=== PATIENT | male | born 1975 | race Two or more races ===

== ENCOUNTER 2022-03-18 12:52 | Emergency (ER) | payer MEDICAID ==
[2022-03-18] MEDS ORDERED: Adacel Vial IM ONE ×2 (13:20→14:28)
--- NOTE | 2022-03-18 13:26 | ERPHSYRPT ---
- History of Present Illness Source: patient Exam Limitations: no limitations Patient Subjective Stated Complaint: C/O pain to right arm just proximal to elbow and pain to right side of forehead following a fall at home just prior to coming into the ED. Triage Nursing Assessment: Patient came back to the ED in a wheelchair. He was able to transfer self from chair to bed without difficulties. ROM WNL. Able to bear weight without pain. Right side of forehead is red with small abrasion in hairline. Contusion to right arm where pain is located. No bruising at this time. Physician History: 47 yo M w fall at home hitting his R frontal scalp and R supra-olecranon area before arrival. Pt states that his leg gave out. He was dazed but denies LOC. Pt denies C/T/L-spine pain/chest pain/LE pain/pelvic-hip pain. Pt has small abrasions R frontal scalp wo bleeding. Occurred: just prior to arrival Reason for Fall: lost balance (Leg gave out) Injuries/Pain Location: head, upper extremity Loss of Consciousness: no loss of consciousness, dazed Quality: aching Severity of Pain-Max: moderate Severity of Pain-Current: moderate Modifying Factors: Improves With: nothing, movement Associated Symptoms (Fall): extremity injury (R supra-olecranon area), headache, No abdominal pain, No back pain, No confusion, No chest pain, No dizziness, No lightheadedness, No muscle spasms, No nausea, No neck pain, No ringing in ears, No seizures, No shortness of breath, No slurred speech, No trouble walking, No vomiting, No vision changes Allergies/Adverse Reactions: amoxicillin Allergy (Verified 03/18/22 13:09) vancomycin Allergy (Verified 03/18/22 13:09) Home Medications: No Reportable Medications [No Reported Medications] 03/18/22 [History] Hx Tetanus, Diphtheria Vaccination/Date Given: Yes Hx Influenza Vaccination/Date Given: No Hx Pneumococcal Vaccination/Date Given: No Immunizations Up to Date: Yes Travel Risk - International Travel Have you traveled outside of the country in past 3 weeks: No - Coronavirus Screening Are you exhibiting any of the following symptoms?: No Close contact with a COVID-19 positive Pt in past 14-21 Days: No - Vaccine Status Have you recieved a Covid-19 vaccination: No - Review of Systems Constitutional: No Symptoms Eyes: No Symptoms Ears, Nose, & Throat: No Symptoms Respiratory: No Symptoms Cardiac: No Symptoms Abdominal/Gastrointestinal: No Symptoms Genitourinary Symptoms: No Symptoms Musculoskeletal: No Symptoms, Arthralgias (R supra-olecranon area) Skin: No Symptoms Neurological: No Symptoms Psychological: No Symptoms Endocrine: No Symptoms Hematologic/Lymphatic: No Symptoms Immunological/Allergic: No Symptoms - Past Medical History Pertinent Past Medical History: Yes GI Medical History: Gallbladder Disease Other Medical History: Staph infection in groin - Past Surgical History Past Surgical History: Yes Neuro Surgical History: No Pertinent History Cardiac: No Pertinent History Respiratory: No Pertinent History Gastrointestinal: Cholecystectomy Genitourinary: No Pertinent History Musculoskeletal: No Pertinent History Male Surgical History: No Pertinent History - Social History Smoking Status: Current every day smoker Exposure to second hand smoke: No Drug Use: marijuana Patient Lives Alone: No Significant Family History: no pertinent family hx - Nursing Vital Signs Nursing Vital Signs: Initial Vital Signs Temperature 96.9 F 03/18/22 13:10 Pulse Rate 78 03/18/22 13:10 Respiratory Rate 16 03/18/22 13:10 Blood Pressure 143/95 03/18/22 13:10 O2 Sat by Pulse Oximetry 97 03/18/22 13:10 Pain Scale Pain Intensity [] 7 Pain Intensity [] 10 Pain Intensity 4 Mildly hypertensive - [place] Coma Score Best Eye Response ([place]): (4) open spontaneously Best Verbal Response ([place]): (5) oriented Best Motor Response ([place]): (6) obeys commands [place] Total: 15 - Physical Exam General Appearance: no apparent distress Head Injury: tenderness (R frontal scalp abrasions and TTP) Eye Exam: PERRL/EOMI, eyes nml inspection ENT Exam: airway nml, nml ext.inspection, No evidence of ENT injury, No clear fluid (ears), No clear fluid (nose) Neck Exam: supple, trachea midline, full range of motion, normal inspection (C- spine NTTP) Respiratory/Chest Exam: normal breath sounds, No chest tenderness, No respiratory distress Cardiovascular Exam: normal heart sounds, regular rate/rhythm, normal peripheral pulses, No murmur Gastrointestinal Exam: soft, normal bowel sounds, No tenderness Back Exam: normal inspection, vertebral tenderness (No new T or L-spine TTP) Extremity Exam: capillary refill <3 sec, pelvis stable, bony point tenderness (R supra-olecranon TTP/edema/abrasion/Good radial pulse, distal sensation, and capillary return), No deformities Peripheral Pulses: carotid (R): 2+, carotid (L): 2+ Neurologic Exam: alert, oriented x 3, cooperative, 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, normal mood/affect, nml cerebellar function, nml station & gait, sensation nml, No motor deficits, No sensory deficit Skin Exam: normal color, warm, dry SpO2 Interpretation: normal SpO2: 97 O2 Delivery: Room Air - Course Nursing assessment & vital signs reviewed: Yes - Radiology Exams Elbow X-ray Interpretation: Discussed w/ radiologist (R olecranon neg per Rad) - CT Exams Head CT Interpretation: Discussed w/radiologist (No skull fx or intracranial bleed) Ordered Tests: Active Orders 24 hr Category Date Time Status Jimenez Bandage Application -[facility] STAT Care 03/18/22 15:30 Completed ELBOW (MINIMUM 3 VIEWS) Stat Exams 03/18/22 14:07 Completed HEAD WITHOUT CONTRAST [CT] Stat Exams 03/18/22 13:19 Completed Medication Summary Discontinued Medications Generic Name Dose Route Start Last Admin Trade Name Freq PRN Reason Stop Dose Admin Diphtheria/Tetanus/Acell Pertussis 0.5 ml 03/18/22 13:20 03/18/22 14:35 Tdap --Diph,Pertuss(Acell),Tet Vac/Pf 0.5 Ml Vial IM 03/18/22 13:21 0.5 ml .ONCE ONE Administration Diphtheria/Tetanus/Acell Pertussis Confirm 03/18/22 14:28 Tdap --Diph,Pertuss(Acell),Tet Vac/Pf 0.5 Ml Vial Administered 03/18/22 14:29 Dose 0.5 ml IM .STK-MED ONE - Progress Progress: improved Progress Note: 03/18/22 15:27 Tdap given Pt refuses all pain meds 03/18/22 15:31 Jimenez wrap R olecranon per nursing/NVI Counseled pt/family regarding: diagnosis, need for follow-up, rad results - Departure Departure Disposition: Home Clinical Impression: Minor head injury, Contusion of elbow, left Condition: Stable Critical Care Time: No Referrals: BOURGASSER,GENE A [NON-STAFF PHY W/O PRIVILEGES] - Follow up/PCP as directed Instructions: Minor Head Injury (DC), Elbow Sprain (DC) Additional Instructions: Ice head and elbow for 12-24 hours Motrin/Tylenol for pain Return to ER for increasing pain, focal weakness, confusion, or nausea-vomiting Jimenez wrap to right elbow for 2-3 days
--- NOTE | 2022-03-18 15:17 | XRAY ---
Exam: 3 view right elbow series. Comparison: [None.] Indication: 47-year-old male fell onto right arm today. Findings: AP, oblique, and lateral radiographs of the right elbow were obtained. I see no acute fracture or dislocation. No posterior fat pad or elevation of the anterior fat-pad is seen to suggest a joint effusion. There appears to be some minimal ossifications adjacent to both the medial and lateral epicondyles of the distal right humerus which may reflect hydroxyapatite deposition disease, or calcific tendinitis. Correlate clinically. Impression: 1. No acute right elbow fracture, dislocation, or joint effusion is seen. 2. Small heterotopic ossifications adjacent to the medial and lateral epicondyles of the distal right humerus may reflect chronic calcific tendinitis. Correlate clinically.
[2022-03-18 15:21] VITALS: BP 142/84; PULSE 68
--- NOTE | 2022-03-18 15:23 | XRAY ---
Exam: CT of the head without IV contrast. CTDI: 53.92 mGy Comparison: CT of the head without IV contrast from 09/10/2007. Indication: 47-year-old male fell today after legs gave out, striking right side of the head on concrete; complains of dizziness and headaches since fall. Technique: Non-IV contrast axial images were obtained through the brain. Reconstructed coronal and sagittal images were created and reviewed. Findings: The ventricles appear of normal size and configuration. No focal mass effect or midline shift is seen. No acute intracranial bleed or abnormal extra-axial fluid collection is seen. The spencer matter-white matter interfaces appear normal. No low attenuation ischemic infarct is seen. The cortical sulci appear unremarkable. There is equivocal evidence of some minimal asymmetric soft tissue swelling within the anterior right parietal-temporal region. However, I see no fracture of the calvarium of the skull. Furthermore, the paranasal sinuses are clear without air-fluid levels. The mastoid air cells are clear without effusion. The middle ear cavities appear unremarkable. Impression: 1. I see no evidence of acute intracranial bleed or other acute intracranial process. 2. There is no fracture of the calvarium of the skull. There is equivocal evidence of slight asymmetric extracranial soft tissue swelling within the anterior right parietal-temporal region.
[2022-03-18 15:30] VITALS: O2SAT 97
== END 2022-03-18 15:35 | disposition home or self-care (01) ==
LOC: ED 12:52
DX: S50.01XA Contusion of right elbow, initial encounter (principal); S09.90XA Unspecified injury of head, initial encounter; S00.01XA Abrasion of scalp, initial encounter; W19.XXXA Unspecified fall, initial encounter; M25.521 Pain in right elbow; Z72.0 Tobacco use; Z28.310 Unvaccinated for COVID-19
CPT/HCPCS: 70450; 73080; 90471; 90715; 99283

== ENCOUNTER 2022-07-07 21:37 | Emergency (ER) | payer OTHER ==
[2022-07-07 21:53] VITALS: BP 162/107; PULSE 91; O2SAT 98
[2022-07-07] MEDS ORDERED: CLEOCIN 150 MG CAPSULE ONE (22:13)
[2022-07-07] MEDS ORDERED: TORAdol 30 mg Injection ONE (22:13)
[2022-07-07] MEDS: CLEOCIN 150 MG CAPSULE PO ONE (22:15)
[2022-07-07] MEDS: TORAdol 30 mg Injection IM ONE (22:17)
--- NOTE | 2022-07-07 22:27 | ERPHSYRPT ---
- History of Present Illness Source: patient Exam Limitations: no limitations Patient Subjective Stated Complaint: pt states "I have bad teeth and I think I have an abscess or something in one of my front teeth. " Triage Nursing Assessment: Pt ambulatory to bed by self, pt alert and oriented x3, pt c/o dental pain that started today, pt has his front 4 teeth surgically removed at a dentist in [place]. last dose of tylenol was 4 hrs prior to arrival, per pt he has been taking tylenol q 4 hrs with no relief Physician History: 47 yo M w dental pain beginning earlier today. Pt has poor dentition and states that the pain is mod to severe. He has mild gingival swelling. Trismus/fever/dysphagia are all denied. Timing/Duration: abrupt onset (Earlier today) Severity: moderate ENT Location: dental Prearrival Treatment: over the counter meds Modifying Factors: Improves With: other (Worse w chewing) Associated Symptoms: denies symptoms, tooth pain Allergies/Adverse Reactions: amoxicillin Allergy (Verified 07/07/22 21:45) vancomycin Allergy (Verified 07/07/22 21:45) Hx Tetanus, Diphtheria Vaccination/Date Given: Yes Hx Influenza Vaccination/Date Given: No Hx Pneumococcal Vaccination/Date Given: No Immunizations Up to Date: Yes Travel Risk - International Travel Have you traveled outside of the country in past 3 weeks: No - Coronavirus Screening Are you exhibiting any of the following symptoms?: No Close contact with a COVID-19 positive Pt in past 14-21 Days: No - Vaccine Status Have you recieved a Covid-19 vaccination: No - Review of Systems Constitutional: No Symptoms Eyes: No Symptoms Ears, Nose, & Throat: No Symptoms, Mouth Pain, Mouth Swelling Respiratory: No Symptoms Cardiac: No Symptoms Abdominal/Gastrointestinal: No Symptoms Genitourinary Symptoms: No Symptoms Musculoskeletal: No Symptoms Skin: No Symptoms Neurological: No Symptoms Psychological: No Symptoms Endocrine: No Symptoms Hematologic/Lymphatic: No Symptoms Immunological/Allergic: No Symptoms - Past Medical History Pertinent Past Medical History: Yes Neurological History: No Pertinent History ENT History: No Pertinent History Cardiac History: No Pertinent History Respiratory History: No Pertinent History Endocrine Medical History: No Pertinent History Musculoskeletal History: No Pertinent History GI Medical History: Gallbladder Disease History: No Pertinent History Psycho-Social History: No Pertinent History Male Reproductive Disorders: No Pertinent History Other Medical History: Staph infection in groin - Past Surgical History Past Surgical History: Yes Neuro Surgical History: No Pertinent History Cardiac: No Pertinent History Respiratory: No Pertinent History Gastrointestinal: Cholecystectomy Genitourinary: No Pertinent History Musculoskeletal: No Pertinent History Male Surgical History: No Pertinent History - Social History Smoking Status: Current every day smoker Exposure to second hand smoke: No Drug Use: marijuana Patient Lives Alone: No Significant Family History: no pertinent family hx - Nursing Vital Signs Nursing Vital Signs: Initial Vital Signs Pulse Rate 91 H 07/07/22 21:45 Respiratory Rate 18 07/07/22 21:45 Blood Pressure 162/107 07/07/22 21:45 O2 Sat by Pulse Oximetry 98 07/07/22 21:45 Pain Scale Pain Intensity 7 Hypertensive - Physical Exam General Appearance: no apparent distress Eye Exam: bilateral eye: normal inspection, PERRL, EOMI Ear Exam: bilateral ear: auricle normal, canal normal, TM normal Nasal Exam: normal inspection Throat Exam: pharynx normal, dental tenderness (Very poor dentition/Advanced upper erosions of superior front teeth w L front tooth very TTP/Mild gingival edema/), moist mucus membranes, No mandibular swelling, No maxillary swelling, No tongue swollen, No tonsillar swelling, No trismus, No uvula swelling, No voice changes Neck Exam: normal inspection Cardiovascular/Respiratory Exam: normal breath sounds, regular rate/rhythm, heart sounds normal Abdominal Exam: non-tender, soft Neurologic Exam: alert, oriented x 3, cooperative, 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, normal mood/affect, nml cerebellar function, nml station & gait, sensation nml, No motor deficits, No sensory deficit Skin Exam: normal color, warm, dry, No rash SpO2 Interpretation: normal SpO2: 98 O2 Delivery: Room Air - Course Nursing assessment & vital signs reviewed: Yes Ordered Tests: Medication Summary Discontinued Medications Generic Name Dose Route Start Last Admin Trade Name Freq PRN Reason Stop Dose Admin Hydrocodone Bitart/Acetaminophen 2 tab 07/07/22 22:32 07/07/22 22:42 Hydrocodone/Apap 5/325 1 Tab Tablet PO 07/07/22 22:33 2 tab SENT HOME W/ PATIENT ONE Administration Hydrocodone Bitart/Acetaminophen Confirm 07/07/22 22:35 Hydrocodone/Apap 5/325 1 Tab Tablet Administered 07/07/22 22:36 Dose 2 tab .ROUTE .STK-MED ONE Clindamycin HCl 300 mg 07/07/22 22:11 07/07/22 22:15 Clindamycin Hcl 150 Mg Capsule PO 07/07/22 22:12 300 mg STAT ONE Administration Clindamycin HCl Confirm 07/07/22 22:13 Clindamycin Hcl 150 Mg Capsule Administered 07/07/22 22:14 Dose 300 mg .ROUTE .STK-MED ONE Ketorolac Tromethamine 30 mg 07/07/22 22:10 07/07/22 22:17 Ketorolac Tromethamine 30 Mg/Ml Inj IM 07/07/22 22:11 30 mg STAT ONE Administration Ketorolac Tromethamine Confirm 07/07/22 22:13 Ketorolac Tromethamine 30 Mg/Ml Inj Administered 07/07/22 22:14 Dose 30 mg .ROUTE .STK-MED ONE - Progress Progress Note: 07/07/22 22:28 30mg IM Toradol 300mg po Clindamycin 07/07/22 23:33 Norco5 x2 take home Counseled pt/family regarding: diagnosis, need for follow-up - Departure Departure Disposition: Home Clinical Impression: Pain due to dental caries, Dental abscess Condition: Stable Critical Care Time: No Referrals: Provider,Unknown [Primary Care Provider] - Follow up/PCP as directed Instructions: Tooth Abscess (DC), Tooth Decay, Adult (DC) Additional Instructions: Dentist MICHAEL Continue w Clindamycin Pain meds as needed Prescriptions: Hydrocodone/Acetaminophen [Hydrocodone-Acetamin 5-325 mg] 1 each PO Q4HPRN PRN #5 tablet MDD 4 tabs PRN Reason: Pain clindamycin HCL [Clindamycin HCl] 300 mg PO TID 7 Days #21 cap
[2022-07-07] MEDS ORDERED: NORCO 5/325 MG ONE (22:35)
[2022-07-07] MEDS: NORCO 5/325 MG PO ONE (22:42)
== END 2022-07-07 22:56 | disposition home or self-care (01) ==
LOC: ED 21:37
DX: K04.7 Periapical abscess without sinus (principal); K02.9 Dental caries, unspecified
CPT/HCPCS: 96372; 99283; J1885; A9270-GY

== ENCOUNTER 2022-07-21 20:47 | Emergency (ER) | payer OTHER ==
--- NOTE | 2022-07-21 21:00 | ERPHSYRPT ---
- History of Present Illness Time Seen by Provider: 07/21/22 21:00 Source: patient Exam Limitations: no limitations Physician History: This is a 47-year-old obese male who presents with pain in the right perianal area. He noticed it this morning. Patient states that he has had an abscess in the perianal area in the past requiring incision and drainage. Patient has not had a fever. He has not noticed a mass or lump but just tenderness in the right perianal area. Timing/Duration: today Quality: painful Severity: mild (To moderate) Possible Causes: no cause identified Associated Symptoms: denies symptoms, No swelling/mass/lumps Allergies/Adverse Reactions: amoxicillin Allergy (Verified 07/21/22 21:49) Penicillins Allergy (Verified 07/21/22 21:49) vancomycin Allergy (Verified 07/21/22 21:49) Hx Tetanus, Diphtheria Vaccination/Date Given: Yes Hx Influenza Vaccination/Date Given: No Hx Pneumococcal Vaccination/Date Given: No Travel Risk - International Travel Have you traveled outside of the country in past 3 weeks: No - Coronavirus Screening Are you exhibiting any of the following symptoms?: No Close contact with a COVID-19 positive Pt in past 14-21 Days: No - Vaccine Status Have you recieved a Covid-19 vaccination: No - Review of Systems Constitutional: No Symptoms Eyes: No Symptoms Ears, Nose, & Throat: No Symptoms Respiratory: No Symptoms Cardiac: No Symptoms Abdominal/Gastrointestinal: No Symptoms, Other (Perianal tenderness to palpation but no abscess or drainage present) Musculoskeletal: No Symptoms Skin: No Symptoms Neurological: No Symptoms Psychological: No Symptoms Endocrine: No Symptoms Hematologic/Lymphatic: No Symptoms Immunological/Allergic: No Symptoms All Other Systems: Reviewed and Negative - Past Medical History Pertinent Past Medical History: Yes Neurological History: No Pertinent History ENT History: No Pertinent History Cardiac History: No Pertinent History Respiratory History: No Pertinent History Endocrine Medical History: No Pertinent History Musculoskeletal History: No Pertinent History GI Medical History: Gallbladder Disease History: No Pertinent History Psycho-Social History: No Pertinent History Male Reproductive Disorders: No Pertinent History Other Medical History: Staph infection in groin - Past Surgical History Past Surgical History: Yes Neuro Surgical History: No Pertinent History Cardiac: No Pertinent History Respiratory: No Pertinent History Gastrointestinal: Cholecystectomy Genitourinary: No Pertinent History Musculoskeletal: No Pertinent History Male Surgical History: No Pertinent History - Social History Smoking Status: Current every day smoker Exposure to second hand smoke: No Drug Use: marijuana Patient Lives Alone: No Significant Family History: no pertinent family hx - Nursing Vital Signs Nursing Vital Signs: Initial Vital Signs Temperature 98.1 F 07/21/22 21:37 Pulse Rate 103 H 07/21/22 21:37 Respiratory Rate 20 07/21/22 21:37 Blood Pressure 157/112 07/21/22 21:37 O2 Sat by Pulse Oximetry 97 07/21/22 21:37 Pain Scale Pain Intensity 7 - Physical Exam General Appearance: no apparent distress, alert, obese Eye Exam: PERRL/EOMI, eyes nml inspection Ears, Nose, Throat Exam: normal ENT inspection, moist mucous membranes Neck Exam: normal inspection, non-tender, supple, full range of motion Respiratory Exam: chest tenderness, respiratory distress, airway intact Gastrointestinal/Abdomen Exam: No tenderness Rectal Exam: tenderness (Right perianal tenderness without abscess or drainage present.) Back Exam: normal inspection, normal range of motion, No CVA tenderness Extremity Exam: normal inspection, normal range of motion, pelvis stable Neurologic Exam: alert, oriented x 3, cooperative, 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, normal mood/affect, nml cerebellar function, nml station & gait, sensation nml Skin Exam: normal color, warm, dry Lymphatic Exam: No adenopathy SpO2 Interpretation: normal O2 Delivery: Room Air - Course Nursing assessment & vital signs reviewed: Yes - Progress Progress: improved Counseled pt/family regarding: diagnosis, need for follow-up, rad results - Departure Departure Disposition: Home Clinical Impression: Perianal cellulitis, Induration of skin Condition: Stable Critical Care Time: No Referrals: SIS SEQUEIRA FNP [Primary Care Provider] - Follow up/PCP as directed Additional Instructions: Sitz bath twice a day with warm soapy water or Epson salts. Take your antibiotics as prescribed. Follow-up with your primary care physician for persistent symptoms. May return to emergency department if your symptoms worsen. Prescriptions: Hydrocodone/APAP 5/325 [[place] 5/325 mg] 1 each PO Q8H PRN PRN #6 tablet MDD 3 PRN Reason: Pain Smz/Tmp Ds Tablet [Bactrim Ds Tablet] 1 udtab PO BID #14 tablet Metronidazole 500 mg [Flagyl 500 MG] 500 mg PO TID #21 tablet
[2022-07-21 21:40] VITALS: O2SAT 97
[2022-07-21] MEDS ORDERED: BACTRIM DS TABLET PO ONE (22:08)
[2022-07-21] MEDS ORDERED: NORCO 5/325 MG ONE (22:09)
[2022-07-21] MEDS ORDERED: Flagyl 500 MG ONE (22:09)
[2022-07-21] MEDS: Flagyl 500 MG PO ONE (22:10)
[2022-07-21] MEDS: NORCO 5/325 MG PO ONE ×2 (22:10)
[2022-07-21] MEDS: BACTRIM DS TABLET PO ONE (22:10)
[2022-07-21 22:16] VITALS: BP 134/94; PULSE 108
== END 2022-07-21 22:30 | disposition home or self-care (01) ==
LOC: ED 20:47
DX: K61.1 Rectal abscess (principal); R23.4 Changes in skin texture; R10.2 Pelvic and perineal pain; Z72.0 Tobacco use; Z28.310 Unvaccinated for COVID-19; Z79.891 Long term (current) use of opiate analgesic
CPT/HCPCS: 99282; A9270-GY

== ENCOUNTER 2023-03-25 21:27 | Emergency (ER) | payer OTHER ==
[2023-03-25] MEDS ORDERED: Hydromorphone 1 mg/ml Injection IV ONE (21:35)
--- NOTE | 2023-03-25 21:35 | ERPHSYRPT ---
- History of Present Illness Time Seen by Provider: 03/25/23 21:34 Source: patient, family Exam Limitations: no limitations Physician History: This is a 48-year-old obese male who presents low back pain and radiation into his hip and buttocks. Patient was seen at an outside facility and had a CAT scan which did not show any acute lumbar spine fractures or spinal stenosis. Patient does not have numbness in his feet. He has no loss of urinary or bowel control. He has no constipation. He was given a combination of naproxen, prednisone and Robaxin. This combination has not been helping him. Patient has not had a fall or any acute trauma to the area. Timing/Duration: day(s) (For 5 days), intermittent, worse Severity: moderate Modifying Factors: Improves With: movement Associated Symptoms: denies symptoms Allergies/Adverse Reactions: amoxicillin Allergy (Verified 03/25/23 22:00) Penicillins Allergy (Verified 03/25/23 22:00) vancomycin Allergy (Verified 03/25/23 22:00) Home Medications: Methocarbamol [Robaxin] 1,000 mg PO BID 03/25/23 [History] Naproxen 500 mg [Naprosyn 500 MG] 1,000 mg PO BID 03/25/23 [History] predniSONE [Prednisone] 50 mg PO DAILY 03/25/23 [History] Hx Tetanus, Diphtheria Vaccination/Date Given: Yes Hx Influenza Vaccination/Date Given: No Hx Pneumococcal Vaccination/Date Given: No Travel Risk - International Travel Have you traveled outside of the country in past 3 weeks: No - Coronavirus Screening Are you exhibiting any of the following symptoms?: No Close contact with a COVID-19 positive Pt in past 14-21 Days: No - Vaccine Status Have you recieved a Covid-19 vaccination: No - Review of Systems Constitutional: No Symptoms Eyes: No Symptoms Ears, Nose, & Throat: No Symptoms Respiratory: No Symptoms Cardiac: No Symptoms Abdominal/Gastrointestinal: No Symptoms Genitourinary Symptoms: No Symptoms Musculoskeletal: Back Pain Skin: No Symptoms Neurological: No Symptoms Psychological: No Symptoms Endocrine: No Symptoms Hematologic/Lymphatic: No Symptoms Immunological/Allergic: No Symptoms All Other Systems: Reviewed and Negative - Past Medical History Pertinent Past Medical History: Yes Neurological History: No Pertinent History ENT History: No Pertinent History Cardiac History: No Pertinent History Respiratory History: No Pertinent History Endocrine Medical History: No Pertinent History Musculoskeletal History: No Pertinent History GI Medical History: Gallbladder Disease History: No Pertinent History Psycho-Social History: No Pertinent History Male Reproductive Disorders: No Pertinent History Other Medical History: Staph infection in groin - Past Surgical History Past Surgical History: Yes Neuro Surgical History: No Pertinent History Cardiac: No Pertinent History Respiratory: No Pertinent History Gastrointestinal: Cholecystectomy Genitourinary: No Pertinent History Musculoskeletal: No Pertinent History Male Surgical History: No Pertinent History Other Surgical History: anus abscess removal - Social History Smoking Status: Current every day smoker How long have you smoked: 31 yrs Exposure to second hand smoke: No Drug Use: marijuana Patient Lives Alone: No Significant Family History: no pertinent family hx - Nursing Vital Signs Nursing Vital Signs: Initial Vital Signs Temperature 98.2 F 03/25/23 21:47 Pulse Rate 79 03/25/23 21:47 Respiratory Rate 20 03/25/23 21:47 Blood Pressure 118/93 03/25/23 21:47 O2 Sat by Pulse Oximetry 96 03/25/23 21:47 Pain Scale Pain Intensity [Left Back] 10 Pain Intensity 10 - Physical Exam General Appearance: no apparent distress, alert, anxiety, obese Eye Exam: PERRL/EOMI, eyes nml inspection Ears, Nose, Throat Exam: normal ENT inspection, moist mucous membranes, tonsillar exudate Neck Exam: normal inspection, non-tender, supple Respiratory Exam: airway intact, No chest tenderness, No respiratory distress Gastrointestinal/Abdomen Exam: No tenderness Rectal Exam: not done Back Exam: normal inspection, vertebral tenderness, decreased range of motion, muscle spasm Extremity Exam: normal inspection, normal range of motion, pelvis stable Neurologic Exam: alert, oriented x 3, cooperative, 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 The level complexity and the work-up performed is based on the review of the patient's past medical history, review of the patient's medication list, review of the patient's drug allergies, history present illness and physical findings on examination. The work-up in this patient does not require laboratory radiographic studies. I am awaiting the CT scan results from 3 days ago which includes lumbar spine CT scan results. The patient states there were no fractures or abnormalities in the spine per his report. He was diagnosed with sciatica which I think he has. We will modify his drug regimen and help him with pain control. Counseled pt/family regarding: diagnosis, need for follow-up Medical Desision Making - Independent Historian Additional History obtained from: Spouse - Risk of complications The pt has a mod risk of morbidity or mortality based on: Need for prescription drug management - Departure Departure Disposition: Home Clinical Impression: Sciatica Condition: Stable Critical Care Time: No Referrals: SIS SEQUEIRA FNP [Primary Care Provider] - Follow up/PCP as directed Additional Instructions: Stop your Robaxin. Continue your prednisone and your naproxen. Contact your primary care provider on 03/28/2020 3 in the morning to make arrangements for follow-up appointment and to discuss referral to a back specialist and pain management. Prescriptions: Oxycodone HCl/Acetaminophen [Percocet 5-325 mg Tablet] 1 each PO Q8H PRN PRN #6 tablet MDD 3 PRN Reason: Moderate To Severe Pain
[2023-03-25] MEDS ORDERED: Hydromorphone 1 mg/ml Injection IM ONE (22:18)
[2023-03-25] MEDS ORDERED: Norflex 60 MG/2 ML IM ONE (22:18)
[2023-03-25] MEDS ORDERED: ZOFRAN ODT 4 MG PO ONE (22:18)
[2023-03-25] MEDS ORDERED: PERCOCET TABLET 5/325MG PO STA (22:19)
[2023-03-25] MEDS ORDERED: ZOFRAN ODT 4 MG ONE (22:27)
[2023-03-25] MEDS ORDERED: PERCOCET TABLET 5/325MG ONE (22:27)
[2023-03-25] MEDS ORDERED: Hydromorphone 1 mg/ml Injection ONE (22:28)
[2023-03-25] MEDS ORDERED: Norflex 100 MG Tablet PO ONE ×2 (22:46→22:47)
[2023-03-25 23:13] VITALS: BP 133/86; PULSE 95; O2SAT 97
== END 2023-03-25 23:08 | disposition home or self-care (01) ==
LOC: ED 21:27
DX: M54.30 Sciatica, unspecified side (principal); Z79.891 Long term (current) use of opiate analgesic; Z79.52 Long term (current) use of systemic steroids; Z79.899 Other long term (current) drug therapy; Z28.310 Unvaccinated for COVID-19; Z72.0 Tobacco use
CPT/HCPCS: 96372; 99283; J1170; Q0162; A9270-GY

== ENCOUNTER 2023-04-02 21:14 | Emergency (ER) | payer OTHER ==
--- NOTE | 2023-04-02 21:55 | ERPHSYRPT ---
- History of Present Illness Time Seen by Provider: 04/02/23 21:54 Source: patient Exam Limitations: no limitations Patient Subjective Stated Complaint: pt states that approx 2 weeks ago he started noticing bilat lower leg swelling that is accompanied by pain. he was seen at [facility] on the for same then [facility] on the for same. He is taking the medications that were prescribed to him previously but without relief. pt has sciatica which doesn't allow him to lay down meaning his legs are dangling off the bedside. buck reports that there has been "weeping" on left lower leg but none noted at this time. pt states he has had cellulitis in lower legs previously approx 10yrs ago. Triage Nursing Assessment: pt brought to room 8 via wheelchair and stood to pivot into bed independently. he refused to lay down in bed with feet up due to "sciatica" pain. slight nonpitting edema noted to bilat lower legs from knees down, bilat pedal pulses palpable yet weak, color and cap refill within normal limits to both LE's. pt is able to wiggle all toes, sensation within normal limits with exception of the toes on his left foot being numb which is new. no open areas or drainage noted. denies cp, sob, or difficulty with urination or bowel elimination, denies tingling. Physician History: 48-year-old male presents to the emergency room with new onset bilateral lower extremity edema. He denies fever, chills, chest pain, shortness of breath, nausea, vomiting, abdominal pain, constipation, diarrhea. Patient has severe st abbing pain in the left lower extremity and is radiating from his back for which she has chronic low back pain and has had work-up in the past and is supposed to see pain management. Patient denies ever taking gabapentin or Lyrica for his neuropathic pain. Timing/Duration: yesterday Severity: moderate Modifying Factors: Worsens With: immobilization Associated Symptoms: denies symptoms Allergies/Adverse Reactions: amoxicillin Allergy (Verified 04/02/23 21:30) Penicillins Allergy (Verified 04/02/23 21:30) vancomycin Allergy (Verified 04/02/23 21:30) Home Medications: Naproxen 500 mg [Naprosyn 500 MG] 500 mg PO BID 03/25/23 [History] Cyclobenzaprine HCl 10 mg [Cyclobenzaprine 10 MG] 10 mg PO BID 04/02/23 [History] Ibuprofen 200 mg [Motrin 200 mg] 600 mg PO TID 04/02/23 [History] Hx Tetanus, Diphtheria Vaccination/Date Given: Yes Hx Influenza Vaccination/Date Given: No Hx Pneumococcal Vaccination/Date Given: No Immunizations Up to Date: Yes Travel Risk - International Travel Have you traveled outside of the country in past 3 weeks: No - Coronavirus Screening Are you exhibiting any of the following symptoms?: No Close contact with a COVID-19 positive Pt in past 14-21 Days: No - Vaccine Status Have you recieved a Covid-19 vaccination: No - Review of Systems Constitutional: No Symptoms Eyes: No Symptoms Ears, Nose, & Throat: No Symptoms Respiratory: No Symptoms Cardiac: No Symptoms Abdominal/Gastrointestinal: No Symptoms Genitourinary Symptoms: No Symptoms Musculoskeletal: Back Pain, Other (b/l LE pain and swelling) Skin: No Symptoms Neurological: No Symptoms Psychological: No Symptoms Endocrine: No Symptoms Hematologic/Lymphatic: No Symptoms Immunological/Allergic: No Symptoms All Other Systems: Reviewed and Negative - Past Medical History Pertinent Past Medical History: Yes Neurological History: No Pertinent History ENT History: No Pertinent History Cardiac History: No Pertinent History Respiratory History: No Pertinent History Endocrine Medical History: Diabetes Type II Musculoskeletal History: Other GI Medical History: Gallbladder Disease History: No Pertinent History Psycho-Social History: No Pertinent History Male Reproductive Disorders: No Pertinent History Other Medical History: Staph infection in groin, sciatica - Past Surgical History Past Surgical History: Yes Neuro Surgical History: No Pertinent History Cardiac: No Pertinent History Respiratory: No Pertinent History Gastrointestinal: Cholecystectomy Genitourinary: No Pertinent History Musculoskeletal: No Pertinent History Male Surgical History: No Pertinent History Other Surgical History: anus abscess removal - Social History Smoking Status: Current every day smoker How long have you smoked: 31 yrs Exposure to second hand smoke: No Drug Use: marijuana Patient Lives Alone: No Significant Family History: no pertinent family hx - Nursing Vital Signs Nursing Vital Signs: Initial Vital Signs Temperature 97.1 F 04/02/23 21:31 Pulse Rate 105 H 04/02/23 21:31 Respiratory Rate 16 04/02/23 21:31 Blood Pressure 149/117 04/02/23 21:31 O2 Sat by Pulse Oximetry 99 04/02/23 21:31 Pain Scale Pain Intensity 9 - Physical Exam General Appearance: no apparent distress, obese Eye Exam: PERRL/EOMI Ears, Nose, Throat Exam: normal ENT inspection Neck Exam: normal inspection, full range of motion Respiratory Exam: normal breath sounds, lungs clear, airway intact, No respiratory distress Cardiovascular Exam: regular rate/rhythm, normal heart sounds, capillary refill <2 sec, edema (1+ b/l LE ) Back Exam: vertebral tenderness (lumbar), decreased range of motion, muscle spasm, No CVA tenderness Extremity Exam: swelling (1+ b/l LE pitting edema), tenderness (L>R), No calf tenderness, No parasthesia Neurologic Exam: alert, oriented x 3, cooperative Skin Exam: normal color, warm, dry, No rash SpO2 Interpretation: normal SpO2: 99 O2 Delivery: Room Air Ordered Tests: Active Orders 24 hr Category Date Time Status CBC W DIFF Stat Lab 04/02/23 22:15 Completed CMP Stat Lab 04/02/23 22:15 Completed CULTURE,URINE Stat Lab 04/02/23 22:39 Received ESR [Erythrocyte Sedimentation Rate] Stat Lab 04/02/23 22:15 Completed NT PRO BNPII Stat Lab 04/02/23 22:15 Completed UA W/RFX UR CULTURE Stat Lab 04/02/23 22:39 Completed Medication Summary Generic Name Dose Route Start Last Admin Trade Name Freq PRN Reason Stop Dose Admin Pregabalin 150 mg 04/03/23 22:02 04/02/23 22:17 Pregabalin 150 Mg Capsule PO 04/03/23 22:03 150 mg ONCE ONE Administration Discontinued Medications Generic Name Dose Route Start Last Admin Trade Name Freq PRN Reason Stop Dose Admin Cyclobenzaprine HCl 10 mg 04/02/23 23:11 04/02/23 23:20 Cyclobenzaprine Hcl 10 Mg Tablet PO 04/02/23 23:12 10 mg STAT ONE Administration Cyclobenzaprine HCl Confirm 04/02/23 23:19 Cyclobenzaprine Hcl 10 Mg Tablet Administered 04/02/23 23:20 Dose 10 mg .ROUTE .STK-MED ONE Ketorolac Tromethamine 60 mg 04/02/23 22:00 04/02/23 22:17 Ketorolac Tromethamine 30 Mg/Ml Inj IM 04/02/23 22:01 60 mg STAT ONE Administration Ketorolac Tromethamine Confirm 04/02/23 22:12 Ketorolac Tromethamine 30 Mg/Ml Inj Administered 04/02/23 22:13 Dose 60 mg .ROUTE .STK-MED ONE Oxycodone/Acetaminophen 1 tab 04/02/23 23:16 04/02/23 23:20 Oxycodone / Apap 10/325 Mg 1 Tablet PO 04/02/23 23:17 1 tab STAT STA Administration Oxycodone/Acetaminophen Confirm 04/02/23 23:19 Oxycodone / Apap 10/325 Mg 1 Tablet Administered 04/02/23 23:20 Dose 1 tab .ROUTE .STK-MED ONE Pregabalin Confirm 04/02/23 22:14 Pregabalin 150 Mg Capsule Administered 04/02/23 22:15 Dose 150 mg .ROUTE .STK-MED ONE Lab/Rad Data: Laboratory Result Diagrams 04/02/23 22:15 04/02/23 22:15 Laboratory Results 04/02/23 04/02/23 04/02/23 Range/Units 22:39 22:15 22:15 WBC (4.0-10.5) x10^3/uL RBC (4.1-5.6) x10^6/uL Hgb (12.5-18.0) g/dL Hct (42-50) % MCV (78-100) fL MCH (26-32) pg MCHC (32-36) g/dL RDW (11.5-14.0) % Plt Count (150-450) x10^3/uL MPV (7.5-11.0) fL Gran % (36.0-66.0) % Immature Gran % (Auto) (0.00-0.4) % Nucleat RBC Rel Count (0.00-0.1) % Eos # (Auto) (0-0.5) x10^3/uL Immature Gran # (Auto) (0.00-0.03) x10^3u/L Absolute Lymphs (auto) (1.0-4.6) x10^3/uL Absolute Monos (auto) (0.0-1.3) x10^3/uL Absolute Nucleated RBC (0.00-0.01) x10^3u/L Lymphocytes % (24.0-44.0) % Monocytes % (0.0-12.0) % Eosinophils % (0.00-5.0) % Basophils % (0.0-0.4) % Absolute Granulocytes (1.4-6.9) x10^3/uL Basophils # (0-0.4) x10^3/uL ESR (0-15) mm/hr Sodium (137-145) mmol/L Potassium (3.5-5.1) mmol/L Chloride (98-107) mmol/L Carbon Dioxide (22-30) mmol/L Anion Gap (5-15) MEQ/L BUN (9-20) mg/dL Creatinine (0.66-1.25) mg/dL Estimated GFR ML/MIN Glucose (74-106) mg/dL Hemoglobin A1c 10.16 H (4.5-6.0) % Calcium (8.4-10.2) mg/dL Total Bilirubin (0.2-1.3) mg/dL AST (17-59) U/L ALT (0-50) U/L Alkaline Phosphatase (38-126) U/L NT-Pro-B Natriuret Pep < 20.0 (<300) pg/mL Serum Total Protein (6.3-8.2) g/dL Albumin (3.5-5.0) g/dL Urine Color Yellow (Yellow) Urine Appearance Clear (Clear) Urine pH 6.0 (4.6-8.0) Ur Specific [place] >=1.030 A (1.005-1.030) Urine Protein Negative (Negative) Urine Glucose (UA) >=1000 A (Negative) mg/dL Urine Ketones Trace A (Negative) Urine Blood Negative (Negative) Urine Nitrite Negative (Negative) Urine Bilirubin Negative (Negative) Urine Urobilinogen 0.2 (0.2) mg/dL Ur Leukocyte Esterase Negative (Negative) U Hyaline Cast (Auto) NONE SEEN (0-2) /LPF Urine Microscopic RBC 0-2 (0-5) /HPF Urine Microscopic WBC 11-20 A (0-5) /HPF Ur Epithelial Cells None Seen (None Seen) /HPF Urine Bacteria None Seen (None Seen) /HPF Urine Culture Reflexed YES (NO) 04/02/23 04/02/23 Range/Units 22:15 22:15 WBC 12.0 H (4.0-10.5) x10^3/uL RBC 5.32 (4.1-5.6) x10^6/uL Hgb 15.6 (12.5-18.0) g/dL Hct 47.1 (42-50) % MCV 88.5 (78-100) fL MCH 29.3 (26-32) pg MCHC 33.1 (32-36) g/dL RDW 13.5 (11.5-14.0) % Plt Count 199 (150-450) x10^3/uL MPV 11.1 H (7.5-11.0) fL Gran % 69.8 H (36.0-66.0) % Immature Gran % (Auto) 0.4 (0.00-0.4) % Nucleat RBC Rel Count 0.0 (0.00-0.1) % Eos # (Auto) 0.24 (0-0.5) x10^3/uL Immature Gran # (Auto) 0.05 H (0.00-0.03) x10^3u/L Absolute Lymphs (auto) 2.56 (1.0-4.6) x10^3/uL Absolute Monos (auto) 0.75 (0.0-1.3) x10^3/uL Absolute Nucleated RBC 0.00 (0.00-0.01) x10^3u/L Lymphocytes % 21.3 L (24.0-44.0) % Monocytes % 6.2 (0.0-12.0) % Eosinophils % 2.0 (0.00-5.0) % Basophils % 0.3 (0.0-0.4) % Absolute Granulocytes 8.37 H (1.4-6.9) x10^3/uL Basophils # 0.04 (0-0.4) x10^3/uL ESR 7 (0-15) mm/hr Sodium 136 L (137-145) mmol/L Potassium 3.7 (3.5-5.1) mmol/L Chloride 105 (98-107) mmol/L Carbon Dioxide 22 (22-30) mmol/L Anion Gap 13.5 (5-15) MEQ/L BUN 12 (9-20) mg/dL Creatinine 0.56 L (0.66-1.25) mg/dL Estimated GFR > 60.0 ML/MIN Glucose 381 H (74-106) mg/dL Hemoglobin A1c (4.5-6.0) % Calcium 8.6 (8.4-10.2) mg/dL Total Bilirubin 0.50 (0.2-1.3) mg/dL AST 24 (17-59) U/L ALT 31 (0-50) U/L Alkaline Phosphatase 102 (38-126) U/L NT-Pro-B Natriuret Pep (<300) pg/mL Serum Total Protein 7.1 (6.3-8.2) g/dL Albumin 3.6 (3.5-5.0) g/dL Urine Color (Yellow) Urine Appearance (Clear) Urine pH (4.6-8.0) Ur Specific [place] (1.005-1.030) Urine Protein (Negative) Urine Glucose (UA) (Negative) mg/dL Urine Ketones (Negative) Urine Blood (Negative) Urine Nitrite (Negative) Urine Bilirubin (Negative) Urine Urobilinogen (0.2) mg/dL Ur Leukocyte Esterase (Negative) U Hyaline Cast (Auto) (0-2) /LPF Urine Microscopic RBC (0-5) /HPF Urine Microscopic WBC (0-5) /HPF Ur Epithelial Cells (None Seen) /HPF Urine Bacteria (None Seen) /HPF Urine Culture Reflexed (NO) - Progress Progress: unchanged Progress Note: Lab evaluation showed normal CBC and CMP. His BNP was less than 20, albumin 3.6 and ESR 7. Patient did have an elevated glucose of 381 and an A1c of 10.16. His urine showed a specific gravity of 1.03, greater than 1000 glucose, trace ketones and 11-20 white blood cells. The Lyrica given to the patient did not help his pain so Flexeril and Percocet were given. Encouraged patient to follow-up with PCP for further management of his diabetes and to get physical therapy so that he can get further imaging of his back in order to get treatment with pain management. Percocet 10 was prescribed to the patient for a total of 20 tablets. Metformin 500 twice daily for 30 days was sent to the patient's pharmacy. 04/02/23 23:26 Counseled pt/family regarding: lab results, diagnosis, need for follow-up Medical Desision Making - Diagnostic Testing Diagnostic test were ordered, analyzed, and reviewed by me: Yes Radiological Interpretation: Interpreted by me - Risk of complications The pt has a mod risk of morbidity or mortality based on: Need for prescription drug management - Departure Departure Disposition: Home Clinical Impression: Hyperglycemia, Diabetes mellitus, Localized swelling of both lower legs, Low back pain, Lumbar radiculopathy Condition: Stable Critical Care Time: No Referrals: SIS SEQUEIRA FNP [Primary Care Provider] - Follow up/PCP as directed Instructions: Type 2 diabetes, Dependent Edema (DC) Prescriptions: Metformin HCl 500 mg [Glucophage 500 MG] 500 mg PO BIDWM #60 tablet Oxycodone HCl/Acetaminophen [Percocet 10-325 mg Tablet] 1 each PO Q6H PRN #20 tablet MDD 4 tabs PRN Reason: Pain
[2023-04-02] MEDS ORDERED: TORAdol 30 mg Injection IM ONE (22:00)
[2023-04-02] MEDS ORDERED: TORAdol 30 mg Injection ONE (22:12)
[2023-04-02] MEDS ORDERED: LYRICA 150MG ONE (22:14)
[2023-04-02 22:16] LABS: Erythrocyte Sedimentation Rate 7 mm/hr (0-15)
[2023-04-02 22:17] LABS: Absolute Neutrophil Ct (ANC) 8.37 x10^3/uL (1.4-6.9); BASOPHIL % 0.3 % (0.0-0.4); Basophil (Absolute #) 0.04 x10^3/uL (0-0.4); Eosinophil (Absolute #) 0.24 x10^3/uL (0-0.5); Hematocrit 47.1 % (42-50); Hemoglobin 15.6 g/dL (12.5-18.0); IMMATURE GRAN # 0.05 x10^3u/L (0.00-0.03); IMMATURE GRAN % 0.4 % (0.00-0.4); Lymphocyte (Absolute #) 2.56 x10^3/uL (1.0-4.6); Lymphocytes % 21.3 % (24.0-44.0); Mean Cell Volume 88.5 fL (78-100); Mean Corpuscular Hemoglobin 29.3 pg (26-32); Mean Corpuscular Hgb Concent. 33.1 g/dL (32-36); Mean Platelet Volume 11.1 fL (7.5-11.0); Monocyte (Absolute #) 0.75 x10^3/uL (0.0-1.3); Monocytes % 6.2 % (0.0-12.0); Neutrophil % 69.8 % (36.0-66.0); Platelet Count 199 x10^3/uL (150-450); Red Blood Count 5.32 x10^6/uL (4.1-5.6); Red Cell Distribution Width 13.5 % (11.5-14.0)
[2023-04-02 22:29] LABS: ALBUMIN 3.6 g/dL (3.5-5.0); ALKALINE PHOSPHATASE 102 U/L (38-126); ANION GAP 13.5 MEQ/L (5-15); BLOOD UREA NITROGEN 12 mg/dL (9-20); CHLORIDE 105 mmol/L (98-107); Calcium 8.6 mg/dL (8.4-10.2); Carbon Dioxide 22 mmol/L (22-30); Creatinine 1 0.56 mg/dL (0.66-1.25); EST GLOMERULAR FILTRATION RATE > 60.0 ML/MIN; Glucose 381 mg/dL (74-106); Potassium 3.7 mmol/L (3.5-5.1); SGOT/AST 24 U/L (17-59); SGPT/ALT 31 U/L (0-50); SODIUM 136 mmol/L (137-145); Total Protein 7.1 g/dL (6.3-8.2)
[2023-04-02 22:51] LABS: Appearance Clear (Clear); Bacteria None Seen /HPF (None Seen); Bilirubin Negative (Negative); Blood Negative (Negative); Epithelial Cells None Seen /HPF (None Seen); Glucose, Urine >=1000 mg/dL (Negative); Hyaline Casts NONE SEEN /LPF (0-2); Ketones Trace (Negative); Leukocyte Esterase Negative (Negative); Nitrite Negative (Negative); Protein,Urine Dip Negative (Negative); RBC 0-2 /HPF (0-5); Specific Gravity >=1.030 (1.005-1.030); Urobilinogen 0.2 mg/dL (0.2)
[2023-04-02 22:52] LABS: ADD URINE CULTURE? YES (NO)
[2023-04-02] MEDS ORDERED: Cyclobenzaprine 10 MG PO ONE (23:11)
[2023-04-02] MEDS ORDERED: OXYCODONE-ACETAMINOPHEN 10-325 PO STA (23:16)
[2023-04-02] MEDS ORDERED: OXYCODONE-ACETAMINOPHEN 10-325 ONE (23:19)
[2023-04-02] MEDS ORDERED: Cyclobenzaprine 10 MG ONE (23:19)
[2023-04-02 23:24] VITALS: O2SAT 99
[2023-04-02 23:55] VITALS: BP 139/82; PULSE 89
[2023-04-03] MEDS ORDERED: LYRICA 150MG PO ONE (22:02)
== END 2023-04-02 23:56 | disposition home or self-care (01) ==
LOC: ED 21:14
DX: E11.65 Type 2 diabetes mellitus with hyperglycemia (principal); R60.0 Localized edema; M54.50 Low back pain, unspecified; M54.16 Radiculopathy, lumbar region; Z79.84 Long term (current) use of oral hypoglycemic drugs; Z79.891 Long term (current) use of opiate analgesic; Z79.899 Other long term (current) drug therapy; Z28.310 Unvaccinated for COVID-19; Z72.0 Tobacco use
CPT/HCPCS: 36415; 80053; 81001; 83036; 83880; 85025; 85652; 87086; 96372; 99283; J1885; A9270-GY